=== PATIENT | female | born 1980 | race African-American/Black ===

== ENCOUNTER → 2020-05-06 | Outpatient (CLI) | payer BC ==
[~2020-05-06] MED LIST: PERCOCET 325 MG1 TA2 PO; PRENATAL1 TA1 PO; SENOKOT S 50 MG1 TAB PO; SLOW FE45 MG PO
== END ==
LOC: MC.RAD 07:30
DX: Z12.31 Encounter for screening mammogram for malignant neoplasm of breast (principal)